=== PATIENT | male | born 1945 | race Caucasian/White ===

== ENCOUNTER → 2019-10-05 14:30 | Outpatient (CLI) | payer MEDICARE, SELFPAY ==
[2019-09-21 13:39] VITALS: BMI 27.8
--- NOTE | 2019-10-05 14:32 | ECHOD_ITS ---
Reason For Study: CAD/ASHD Procedure This was a 2D Doppler, Color Flow transthoracic echocardiogram. Exam performed in department. Left Ventricle Normal size and thickness. The estimated ejection fraction is 65 %. Stage 1 diastolic dysfunction. No regional wall motion abnormalities noted. Right Ventricle Normal size and thickness. Normal systolic function. Atria Normal left atrium. Normal right atrium. Normal atrial septum. Mitral Valve The mitral valve is structurally normal. No prolapse or stenosis seen. Trivial mitral valve insufficiency. Tricuspid Valve Normal tricuspid valve. Unable to estimate RV systolic pressure due to insufficient tricuspid regurgitant envelope. Aortic Valve Trisinus/trileaflet aortic valve. Moderate focal aortic valve thickening. There is no aortic stenosis. Pulmonic Valve Normal pulmonic valve. Trivial pulmonic valve insufficiency identified. Great Vessels Normal aortic root. Normal arch. Normal inferior vena cava. Inferior vena cava collapse with sniff. Pericardium/Pleural No pericardial effusion. MMode/2D Measurements & Calculations LVIDd: 4.2 cm IVSd: 1.3 cm Ao root diam: 3.8 cm LVIDs: 2.8 cm LVPWd: 0.92 cm LA dimension: 3.8 cm FS: 33.9 % LAV(MOD-bp): 36.9 ml LA A4 area: 14.0 cm2 RA A4 area: 11.8 cm2 LAV(MOD-bp) Indexed: 17.0 ml/m2 LAV(MOD-sp2): 39.5 ml LAV(MOD-sp4): 34.4 ml Time Measurements MV dec time: 0.36 sec Doppler Measurements & Calculations MV E max kavon: 46.2 cm/sec Lat Peak E' Kavon: 5.6 cm/sec Med Peak E' Kavon: 3.4 cm/sec MV A max kavon: 76.7 cm/sec E/E' lat: 8.2 E/E' med: 13.5 MV E/A: 0.60 MV V2 max: 89.6 cm/sec MV P1/2t max kavon: 58.7 cm/sec Ao V2 max: 167.6 cm/sec MV max P.2 mmHg MV P1/2t: 114.6 msec Ao max P.2 mmHg MV V2 mean: 48.4 cm/sec MV dec slope: 150.1 cm/sec2 Ao V2 mean: 102.1 cm/sec MV mean P.0 mmHg MVA(P1/2t): 1.9 cm2 Ao mean P.1 mmHg MV V2 VTI: 25.0 cm Ao V2 VTI: 31.2 cm LV V1 max: 76.1 cm/sec PA V2 max: 113.6 cm/sec LV V1 max P.3 mmHg LV V1 mean P.90 mmHg LV V1 mean: 43.0 cm/sec LV V1 VTI: 16.1 cm Interpretation Summary The estimated ejection fraction is 65 %. Stage 1 diastolic dysfunction. Unable to estimate RV systolic pressure due to insufficient tricuspid regurgitant envelope. There is no comparison study available. Ordering Physician: Arslan Hernandez Referring Physician: Arslan Hernandez Performed By: Gregg Jones RCS
== END ==
PROVIDERS: Family Provider Family Medicine; PCP Family Medicine; Referring Provider Internal Medicine Cardiovascular Disease; Visit Provider Internal Medicine Cardiovascular Disease
DX: I25.10 Atherosclerotic heart disease of native coronary artery without angina pectoris (principal); I25.5 Ischemic cardiomyopathy; Z95.5 Presence of coronary angioplasty implant and graft
CPT/HCPCS: 93306

== ENCOUNTER → 2019-10-13 08:32 | Outpatient (CLI) | payer MEDICARE, SELFPAY ==
[2019-09-21 13:39] VITALS: BMI 27.8
[2019-10-13 10:23] LABS: AST(SGOT) 19 U/L (15-37); Alanine Aminotransfer ALT/SGPT 32 U/L (16-61); Albumin, Serum 3.8 g/dL (3.2-5.0); Alkaline Phosphatase 46 U/L (45-117); Bilirubin, Direct 0.19 mg/dL (0.00-0.30); Cholesterol 110 mg/dL (200); Globulin 3.3 g/dL (2.2-4.2); High Density Lipoprotein 43 mg/dL; Protein, Total 7.1 g/dL (6.4-8.2); Triglycerides 92 mg/dL; Very Low Density Lipoprotein 18 mg/dL (5-40)
--- NOTE | 2019-10-13 10:30 | STEWCON_ITS ---
Reason For Study: CAD/ASHD Stress Results Protocol: Hemant Protocol WITH DEFINITY Maximum Predicted HR: 145 bpm Target HR: 123 bpm % Maximum Predicted HR: 89 % DurationHeart Rate Stage (mm:ss) (bpm) BP Comment BASELINE 71 138/821 CC DEFINITY STAGE 1 3:00 102 140/80 STAGE 2 3:00 113 158/86SOB STAGE 3 0:40 129 / 2 CC DEFINITY, SOB AND FATIGUE RECOVERY 80 132/82 Stress Duration: 6:40 mm:ss Maximum Stress HR: 129 bpm Baseline Echocardiogram Findings The estimated ejection fraction is 65 %. Stress Echo Wall motion Data Resting WM Intermediate WM Stress WM Resting Wall Motion Wall Motion Stress No regional wall motion No regional wall motion abnormalities noted. abnormalities noted. EKG Data The baseline ECG displays normal sinus rhythm. The patient exercised according to the regular Hemant protocol for a total duration of 6:39. The maximum heart rate attained was 130 beats per minute. This was 89% of maximum predicted heart rate. The patient exercised into stage 3 of the Hemant protocol. During stress, there were no ST or T wave changes noted to suggest ischemia. No clinical angina was noted. Interpretation Summary The estimated ejection fraction is 65 %. Normal, adequate, treadmill echocardiogram. Negative for ischemia by EKG and echocardiographic criteria. No anginal symptoms noted. Mild PVCs noted during exercise. Test terminated due to the attainment of target heart rate and dyspnea. Average exercise capacity for age. Final LVEF is 75%. Decreased sensitivity due to poor echo windows requiring Definity agent. No complications. The study was technically difficult. Contrast injection was performed. Ordering Physician: Arslan Hernandez Referring Physician: Arslan Hernandez Performed By: Sofia Overton RDCS
== END ==
PROVIDERS: Family Provider Family Medicine; PCP Family Medicine; Referring Provider Internal Medicine Cardiovascular Disease; Visit Provider Internal Medicine Cardiovascular Disease
DX: I25.10 Atherosclerotic heart disease of native coronary artery without angina pectoris (principal); I25.5 Ischemic cardiomyopathy; Z95.5 Presence of coronary angioplasty implant and graft
CPT/HCPCS: 36415; 80061; 80076; 93017; 93350; Q9957; A4216; C8928

== ENCOUNTER → 2020-01-05 | Outpatient (CLI) | payer MEDICARE, SELFPAY ==
[2019-09-21 13:39] VITALS: BMI 27.8
--- NOTE | 2020-01-05 12:02 | EKG12_ITS ---
Test Reason : PRE OP Blood Pressure : / mmHG Vent. Rate : 063 BPM Atrial Rate : 063 BPM P-R Int : 164 ms QRS Dur : 150 ms QT Int : 432 ms P-R-T Axes : 027 -34 021 degrees QTc Int : 442 ms Normal sinus rhythm Left axis deviation Right bundle branch block Left ventricular hypertrophy with QRS widening Abnormal ECG Confirmed by MENDEZ ELENA ([id number]), news assignment editor YOGESH RAYA ([id number]) on 01/07/2020 1:15:34 PM Referred By: DAVID PRETTY Confirmed By:MENDEZ ELENA
--- NOTE | 2020-01-05 12:02 | RAD_ITS ---
STUDY: X-RAY CHEST REASON FOR EXAM: Male, 74 years old. PRE OP; -- PROSTATE CA TECHNIQUE: Frontal and lateral views COMPARISON: None. FINDINGS: The lungs are clear and expanded. There is no demonstrated pleural abnormality. Normal size heart. Normal mediastinum and katlin. Normal visualized pulmonary arteries. Normal visualized aortic arch and descending thoracic aorta. Degenerative changes of the thoracic spine. Normal visualized ribs, clavicles, and shoulders. There is no demonstrated abnormality of the visualized soft tissue structures of the upper abdomen. RAD/Chest PA and Lateral IMPRESSION: Normal x-ray examination of the chest. Electronically Signed: Jorge A Lopez DO at 22:39 EST Tel [phone], Service support ,
[2020-01-05 13:40] LABS: Hematocrit 47.8 % (40-54); Mean Corp Hgb Conc 33.5 g/dL (32-36); Mean Corpuscular Hgb 29.3 pg (27.0-32.0); Mean Corpuscular Volume 87.5 fL (80-94); Mean Platelet Vol. 10.9 fl (6.2-12.0); Platelet Count 249 K/mm3 (150-450); RBC Distribution Width CV 13.9 % (11.6-14.6); RBC Distribution Width SD 44.1 fl (35.1-43.9); Red Blood Count 5.46 M/mm3 (4.6-6.2)
[2020-01-05 13:53] LABS: International Normalized Ratio 1.1; Prothrombin Time (Protime)PT. 13.5 SECONDS (11.7-14.9)
[2020-01-05 14:19] LABS: Anion Gap 6 (5-15); BUN 11 mg/dL (7-18); BUN/Creat Ratio 11.9 RATIO (10-20); Calcium,Total 8.6 mg/dL (8.5-10.1); Chloride 106 mmol/L (98-107); Creatinine, Serum 0.92 mg/dL (0.70-1.30); EST Glomerular Filtration Rate 85 mL/min (>60); Est Glom Filt Rate - Afr Amer 102 mL/min (>60); Glucose 81 mg/dL (74-106); Potassium 3.8 mmol/L (3.5-5.1); Sodium Level 138 mmol/L (136-145)
== END | disposition home or self-care (01) ==
LOC: RAD.FUTURE 11:58 → RAD 11:59
PROVIDERS: PCP Family Medicine
DX: Z01.810 Encounter for preprocedural cardiovascular examination (principal); C61 Malignant neoplasm of prostate
CPT/HCPCS: 36415; 71046; 80048; 85027; 85610; 93005

== ENCOUNTER 2020-02-01 07:32 | Emergency (ER) | payer MEDICARE, SELFPAY ==
[2019-09-21 13:39] VITALS: BMI 27.8
[2020-02-01 07:33] VITALS: BP 126/86; PULSE 69; RESP 16; TEMP -12.3; TEMP 9.9; BMI 29.1
--- NOTE | 2020-02-01 07:48 | RAD_ITS ---
STUDY: X-RAY CHEST REASON FOR EXAM: Male, 74 years old. CHEST PAIN STARTED LAST NIGHT -- SOB TECHNIQUE: Single AP portable view of the chest. COMPARISON: Comparison is made with prior examination dated January 05, 2020. FINDINGS: EKG electrodes are seen. The lungs are clear and expanded. There is no demonstrated pleural abnormality. Normal size heart. Normal mediastinum and katlin. Normal visualized pulmonary arteries. There is atherosclerotic tortuosity of the aortic arch and descending thoracic aorta. There are diffuse degenerative changes of the visualized thoracic spine. There is degenerative osteoarthritis of the bilateral shoulders. There is no demonstrated abnormality of the visualized soft tissue structures of the upper abdomen. RAD/Chest 1 View (Portable) IMPRESSION: Stable examination. No acute abnormality is seen. Electronically Signed: Aly Roberto, at 8:45 EDT , Service support ,
--- NOTE | 2020-02-01 07:48 | EKG12_ITS ---
Test Reason : CP Blood Pressure : / mmHG Vent. Rate : 069 BPM Atrial Rate : 069 BPM P-R Int : 180 ms QRS Dur : 146 ms QT Int : 440 ms P-R-T Axes : 056 -38 033 degrees QTc Int : 471 ms Normal sinus rhythm Left axis deviation Right bundle branch block Abnormal ECG Confirmed by KAMLESH CASEY, JE ([id number]), mapping editor YOGESH RAYA ([id number]) on 02/04/2020 11:38:14 AM Referred By: AVEL Confirmed By:ES WHITLOCK MD
--- NOTE | 2020-02-01 07:49 | ED.DCSUM_ITS ---
History of Present Illness Chief Complaint: Chest Pain Informant: Patient Narrative: Patient presents the emergency department with chest pain. Patient is a 74-year-old male with history of hypertension hypercholesterolemia coronary artery disease status post angioplasty and stenting to his LAD in 2018 and hypothyroidism. He recently moved to the area and established care with Dr. Hernandez. He underwent stress echocardiogram which was negative. EF noted to be significantly improved up into the 75% range. Yesterday he was unloading firewood from a truck. After he was done he was tired but was not experiencing any chest pain or dyspnea. Near bedtime he began to have an ache in his an terior chest. This morning he notes twinges that last seconds. He has taken a total of 2 nitroglycerin which only gave him a headache. He notes his chest is not sore to touch. He does not note shortness of breath. He states he is otherwise been extremely active and as long as he is active rarely notices any physical symptoms. He states that his symptoms at the time of his NSTEMI were very minimal also. He states that at the time of his heart catheterization he had some other blockages that were not needing to be intervened upon. Per Dr. Hernandez's note he had left circumflex and first obtuse marginal at 40% blockages. The right coronary artery noted to have mild nonobstructive disease. Past Medical History - Allergies and Home Meds Allergies/Adverse Reactions: Allergies atorvastatin [From Lipitor] Adverse Reaction (Severe, Verified 02/01/20 08:00) Myalgias rosuvastatin [From Crestor] Adverse Reaction (Severe, Verified 02/01/20 08:00) Severe myalgias Primary Care Physician: Marco Cooper MD [Primary Care Provider] - Smoking Status: Never smoker Review of Systems General: Denies: Chills, Fever, Sweats Eyes: Denies: Visual changes - bilaterally, Diplopia ENT: Denies: Rhinorrhea, Sore throat Cardiovascular: Reports: Chest pain. Denies: Palpitations, Heart racing Respiratory: Denies: Dyspnea, Cough, Dyspnea on exertion Gastrointestinal: Denies: Abdominal pain, Nausea, Vomiting, Diarrhea, Melena, Hematochezia Genitourinary: Denies: Dysuria, Hematuria, Frequency Musculoskeletal: Denies: Back pain, Extremity Pain Skin: Denies: Rash, Wounds Neurological: Denies: Headache, Weakness, Numbness Physical Exam Inital Vital Signs reviewed: Yes General: Well nourished, Well developed, No Acute Distress Head: Normocephalic, Atraumatic Eyes: Perrl, EOMI ENT: Moist mucous membranes, No rhinorrhea Neck: Supple, Nontender Cardiovascular: Regular rate, Regular rhythm, No murmurs Respiratory: No distress, CTA bilaterally, Chest nontender Abdomen: Soft, Nontender, Nondistended, Normal bowel sounds Back: Nontender, Normal Inspection Extremities: Nontender, No edema Skin: Normal color, No rash Neurological: Alert, Oriented x3, Cranial nerves II-XII grossly intact, Normal Strength, Normal Sensation Psychological: Normal affect, Normal Mood Diagnostic/Tx/Re-eval - EKG Initial EKG Interpretation: Sinus Rhythm, RBBB - Normal sinus rhythm at a rate of 69 with a right bundle branch block and left axis deviation. This appears grossly unchanged from prior. - Medical Decision Making Patient's troponin is normal. Chest x-ray is negative. D-dimer returned at 0.66. Therefore a CT [place] of the chest was ordered which was negative for dissection and embolism. A second troponin was negative. Given the patient's known coronary disease I did discuss the case with Dr. Hernandez. Given that his symptoms are a bit atypical with 2 sets of cardiac enzymes being normal and a negative CTA and a recent stress test we will discharge him home. Have him follow-up with Dr. Hernandez. ED Disposition - Plan for ED Patient: Disposition: Home or Assisted Living Diagnosis: Chest pain Instructions: CHEST PAIN, Uncertain Cause, Chest Wall Strain Referrals: Marco Cooper MD [Primary Care Provider] - As Needed Arslan Hernandez MD [STAFF PHYSICIAN] - (call the office to obtain follow up)
[2020-02-01 07:54] VITALS: BP 126/86; PULSE 64; RESP 18; O2SAT 94
[2020-02-01 07:58] LABS: Absolute Lymphocyte Count 1.68 X10^3/uL (0.83-4.51); Absolute Neutrophil Count 2.9 X10^3/uL (2.0-7.7); Basophil# 0.04 X10^3/uL; Basophil% 0.7 % (0-1); Eosinophil# 0.27 X10^3/uL; Eosinophils% 4.8 % (0-5); Hematocrit 46.5 % (40-54); Hemoglobin 15.8 g/dL (13.0-16.5); Lymphocyte # 1.68 X10^3/ul (4.0); Lymphocyte % 30.1 % (19-41); Mean Corpuscular Hgb 29.4 pg (27.0-32.0); Mean Corpuscular Volume 86.6 fL (80-94); Mean Platelet Vol. 10.8 fl (6.2-12.0); Monocyte# 0.65 X10^3/uL; Monocyte% 11.6 % (0-10); NRBC Flagged by Analyzer 0 % (0-5); Neutrophil # 2.93 X10^3/uL (2.7-7.7); Neutrophil % 52.4 % (47-70); Platelet Count 236 K/mm3 (150-450); RBC Distribution Width CV 13.6 % (11.6-14.6); RBC Distribution Width SD 42.8 fl (35.1-43.9); Red Blood Count 5.37 M/mm3 (4.6-6.2); White Blood Count 5.6 K/mm3 (4.4-11.0)
[2020-02-01 08:10] LABS: Anion Gap 5 (5-15); BUN 11 mg/dL (7-18); BUN/Creat Ratio 11.9 RATIO (10-20); Calcium,Total 8.2 mg/dL (8.5-10.1); Chloride 107 mmol/L (98-107); Creatinine, Serum 0.93 mg/dL (0.70-1.30); EST Glomerular Filtration Rate 84 mL/min (>60); Est Glom Filt Rate - Afr Amer 102 mL/min (>60); Estimated Creatinine Clearance 76.37 ml/min; Glucose 112 mg/dL (74-106); Potassium 3.7 mmol/L (3.5-5.1); Sodium Level 138 mmol/L (136-145)
[2020-02-01 08:18] LABS: D-Dimer Quantitative (DVT/PE) 0.66 FEU/ug/m (0.27-0.49)
--- NOTE | 2020-02-01 08:19 | CT_ITS ---
STUDY: CTA CHEST REASON FOR EXAM: Male, 74 years old. LEFT SIDE CHEST PAIN. HEART STENTS RADIATION DOSAGE (If Supplied By Facility): CTDIvol = ( 12.21 ) mGy, DLP = ( 491.71 ) mGycm TECHNIQUE: The examination was performed with the intravenous administration of 100ML ISOVUE 370. Post-processing of the angiographic images was performed, with multiplanar reformation and 3D reconstruction. Individualized dose optimization techniques were used for this CT. COMPARISON: None. FINDINGS: Normal enhancement of the main pulmonary artery and right and left pulmonary arteries. Normal enhancement of the bilateral peripheral pulmonary arteries. There is no demonstrated pulmonary embolism. There is atherosclerotic calcification of the aortic arch with tortuosity. There is no demonstrated aortic dissection. There are calcifications of the coronary arteries. Normal mediastinum. Normal hilar regions. Normal visualized trachea and bronchi. The lungs are well expanded. Normal pulmonary parenchyma. Normal pleura. Normal chest wall structures. There are degenerative changes of thoracic spine. Small hiatal hernia. Small cysts are seen in the upper pole of the right kidney. CT/CTA Chest W/WO Contrast IMPRESSION: There is no evidence of pulmonary embolism. Coronary artery calcification. Electronically Signed: Aly Roberto, at 10:09 EDT , Service support ,
--- NOTE | 2020-02-01 09:32 | ED.RN ---
Monitor displayed heart rate in 30's. palpated radial pulse at 60.
[2020-02-01 09:59] VITALS: BP 135/74; PULSE 54; RESP 16; O2SAT 94
[2020-02-01 11:03] VITALS: BP 130/80; PULSE 55; RESP 16
[2020-02-01 11:38] VITALS: BP 139/70; PULSE 59; RESP 26; O2SAT 91
== END 2020-02-01 12:00 | disposition home or self-care (01) ==
PROVIDERS: Emergency Provider Emergency Medicine; PCP Family Medicine
DX: R07.9 Chest pain, unspecified (principal); E03.9 Hypothyroidism, unspecified; I25.10 Atherosclerotic heart disease of native coronary artery without angina pectoris; E78.00 Pure hypercholesterolemia, unspecified; I10 Essential (primary) hypertension; I25.2 Old myocardial infarction; Z79.82 Long term (current) use of aspirin; Z79.899 Other long term (current) drug therapy; Z95.5 Presence of coronary angioplasty implant and graft
CPT/HCPCS: 71045; 71275; 80048; 84484; 85025; 85379; 93005; 99284; Q9967; A4216

== ENCOUNTER → 2020-03-29 | Outpatient (CLI) | payer MEDICARE, SELFPAY ==
[2020-03-29 11:04] LABS: PSA,Total- Diagnostic < 0.01 ng/mL (0.0-4.0)
== END | disposition home or self-care (01) ==
LOC: LAB 09:20
PROVIDERS: PCP Family Medicine
DX: C61 Malignant neoplasm of prostate (principal)
CPT/HCPCS: 36415; 84153

== ENCOUNTER → 2020-03-31 | Outpatient (CLI) | payer MEDICARE, SELFPAY ==
[2020-03-31 10:25] LABS: AST(SGOT) 27 U/L (15-37); Alanine Aminotransfer ALT/SGPT 39 U/L (16-61); Albumin, Serum 3.5 g/dL (3.2-5.0); Alkaline Phosphatase 49 U/L (45-117); Bilirubin, Direct 0.22 mg/dL (0.00-0.30); Cholesterol 97 mg/dL (200); Globulin 3.4 g/dL (2.2-4.2); High Density Lipoprotein 43 mg/dL; Protein, Total 6.9 g/dL (6.4-8.2); Triglycerides 54 mg/dL; Very Low Density Lipoprotein 11 mg/dL (5-40)
== END | disposition home or self-care (01) ==
LOC: LAB 09:15
PROVIDERS: PCP Family Medicine; Referring Provider Internal Medicine Cardiovascular Disease; Visit Provider Internal Medicine Cardiovascular Disease
DX: E78.5 Hyperlipidemia, unspecified (principal)
CPT/HCPCS: 36415; 80061; 80076

== ENCOUNTER → 2020-04-21 | Outpatient (CLI) | payer MEDICARE, SELFPAY ==
[2020-04-03 09:29] VITALS: BMI 29.1
--- NOTE | 2020-04-21 11:09 | US_ITS ---
STUDY: THYROID ULTRASOUND REASON FOR EXAM: Male, 74 years old. NODULE -- PREVIOUS TESTING DONE AT A [facility]-NOT AVAILABLE TECHNIQUE: Ultrasound evaluation of the thyroid was performed with real-time and static sanford-scale imaging. COMPARISON: None. FINDINGS: RIGHT LOBE: The right lobe of the thyroid gland measures 4.4 cm x 1.9 cm x 2.0 cm. There is a heterogeneous echotexture. 3 hypoechoic solid nodules are seen in the midportion of the right lobe of the thyroid. The largest nodule measures 1.4 cm x 1.3 cm x 0.7 cm. LEFT LOBE: The left lobe of the thyroid gland measures 3.8 cm x 1.2 cm x 1.0 cm. There is a homogeneous echotexture. There is a 4 mm x 4 mm x 3 mm partially calcified nodule in the upper aspect of the left lobe of the thyroid. ISTHMUS: The isthmus measures 6 mm. The regional lymph nodes are normal. US/Thyroid IMPRESSION: 3 hypoechoic solid nodules in the midportion of the right lobe of the thyroid as described. The largest measures 1.4 cm x 1.3 cm x 0.7 cm. Electronically Signed: Aly Roberto, at 14:47 EDT , Service support ,
== END | disposition home or self-care (01) ==
LOC: US 11:06
PROVIDERS: PCP Family Medicine
DX: E04.1 Nontoxic single thyroid nodule (principal)
CPT/HCPCS: 76536

== ENCOUNTER → 2020-07-06 | Outpatient (CLI) | payer MEDICARE, SELFPAY ==
[2020-04-03 09:29] VITALS: BMI 29.1
[2020-07-06 18:29] LABS: PSA,Total- Diagnostic < 0.01 ng/mL (0.0-4.0)
== END | disposition home or self-care (01) ==
PROVIDERS: PCP Family Medicine
DX: C61 Malignant neoplasm of prostate (principal)
CPT/HCPCS: 36415; 84153

== ENCOUNTER → 2020-08-29 | Outpatient (CLI) | payer MEDICARE, SELFPAY ==
[2020-04-03 09:29] VITALS: BMI 29.1
--- NOTE | 2020-08-29 12:47 | RAD_ITS ---
STUDY: X-RAY - PELVIS AND RIGHT HIP REASON FOR EXAM: Male, 74 years old. right hip pain without injury TECHNIQUE: 3 views of the pelvis and hip. COMPARISON: None. FINDINGS: There is a non-specific bowel gas pattern. Normal visualized soft tissue structures. Normal bilateral iliac wings, sacroiliac joints and visualized sacrum. Normal bilateral superior and inferior pubic rami. Normal pubic symphysis. Normal bilateral ischial tuberosities. Normal visualized femoral head. Normal acetabulum. Normal hip joint. RAD/HIP, UNI W/ Pelvis 2-3 Views IMPRESSION: Normal x-ray examination of the pelvis and hip. Electronically Signed: Waldo West MD at 15:50 EDT Tel , Service support ,
--- NOTE | 2020-08-29 12:48 | RAD_ITS ---
STUDY: X-RAY - LUMBAR SPINE REASON FOR EXAM: Male, 74 years old. low back and right hip pain without injury TECHNIQUE: 5 view(s) of the lumbar spine were obtained. COMPARISON: None FINDINGS: Normal lumbar lordosis. Mild dextroscoliosis centered at L2/L3. There is a normal alignment of the vertebrae. There is multilevel endplate spondylosis of the lumbar vertebrae. There is multi-level degenerative disc disease with multi-level disc space narrowing. The soft tissue structures are unremarkable. RAD/L/S Spine Min 4 Views IMPRESSION: Mild dextroscoliosis and degenerative disc disease per Electronically Signed: Waldo West MD at 15:54 EDT Tel , Service support ,
[2020-08-29 13:46] LABS: Erythrocyte Sedimentation Rate 5 mm/hr (0-20)
[2020-08-29 13:48] LABS: Absolute Lymphocyte Count 1.31 X10^3/uL (0.83-4.51); Absolute Neutrophil Count 5.1 X10^3/uL (2.0-7.7); Basophil# 0.03 X10^3/uL; Basophil% 0.4 % (0-1); Eosinophil# 0.18 X10^3/uL; Eosinophils% 2.4 % (0-5); Hematocrit 46.2 % (40-54); Hemoglobin 15.2 g/dL (13.0-16.5); Lymphocyte # 1.31 X10^3/ul (4.0); Lymphocyte % 17.7 % (19-41); Mean Corp Hgb Conc 32.9 g/dL (32-36); Mean Corpuscular Hgb 28.5 pg (27.0-32.0); Mean Corpuscular Volume 86.5 fL (80-94); Monocyte# 0.73 X10^3/uL; Monocyte% 9.9 % (0-10); NRBC Flagged by Analyzer 0 % (0-5); Neutrophil # 5.11 X10^3/uL (2.7-7.7); Neutrophil % 69.2 % (47-70); Platelet Count 290 K/mm3 (150-450); RBC Distribution Width CV 14.4 % (11.6-14.6); RBC Distribution Width SD 45.1 fl (35.1-43.9); Red Blood Count 5.34 M/mm3 (4.6-6.2); White Blood Count 7.4 K/mm3 (4.4-11.0)
[2020-08-29 14:17] LABS: ALB/GLOB Ratio 1.1 RATIO (0.9-2.4); AST(SGOT) 24 U/L (15-37); Alanine Aminotransfer ALT/SGPT 38 U/L (16-61); Albumin, Serum 3.7 g/dL (3.2-5.0); Alkaline Phosphatase 52 U/L (45-117); Anion Gap 6 (5-15); BUN 12 mg/dL (7-18); BUN/Creat Ratio 13.4 RATIO (10-20); CRP 4.28 mg/L (0.0-3.0); Calcium,Total 8.3 mg/dL (8.5-10.1); Chloride 105 mmol/L (98-107); EST Glomerular Filtration Rate 88 mL/min (>60); Est Glom Filt Rate - Afr Amer 106 mL/min (>60); Globulin 3.3 g/dL (2.2-4.2); Glucose 90 mg/dL (74-106); Potassium 3.9 mmol/L (3.5-5.1); Sodium Level 137 mmol/L (136-145)
[2020-08-30 14:36] LABS: ANTINUCLEAR ANTIBODIES DIRECT Negative (Negative)
[2020-08-31 05:06] LABS: CCP IgG Antibodies 13 units (0-19)
== END | disposition home or self-care (01) ==
PROVIDERS: PCP Family Medicine; Referring Provider Family Medicine; Visit Provider Family Medicine
DX: M54.5 Low back pain (principal); M25.551 Pain in right hip; M25.50 Pain in unspecified joint
CPT/HCPCS: 36415; 72110; 73502; 80053; 85025; 85652; 86038; 86140; 86200; 86225; 86235; 86431